=== PATIENT | female | born 1980 | race Caucasian/White ===

== ENCOUNTER 2021-02-14 11:04 | Outpatient (RCR) | payer OTHER, SELFPAY ==
[2021-02-14 13:32] VITALS: BP 134/90; PULSE 99; RESP 20; TEMP 36.7; O2SAT 98
[2021-02-14] MEDS: ACETAMINOPHEN 325 MG TABLET 650 MG PO (13:36)
[2021-02-14] MEDS: FAMOTIDINE 20 MG TABLET PO (13:36)
[2021-02-14] MEDS: diphenhydrAMINE HCl CAP 25 MG CAPSULE PO (13:36)
[2021-02-14 15:11] VITALS: BP 122/74
--- NOTE | 2021-02-15 09:49 | PC.NURSE ---
Called Ms Monaco, and she stated she has a headache today, more than yesterday and is feeling the same but, no worse. She has no questions for us at this time.
== END 2021-02-14 16:00 ==
LOC: AMCINF 11:04
PROVIDERS: PCP Family Medicine; Visit Provider Internal Medicine Hematology & Oncology
DX: U07.1 COVID-19 (principal)
CPT/HCPCS: A9270; M0245; Q0245

== ENCOUNTER 2021-02-26 12:40 | Outpatient (CLI) | payer OTHER, SELFPAY ==
--- NOTE | ~2021-02-26 | XR_ITS ---
XR chest 2V DATE: 02/26/2021 12:55 INDICATION: Acute lower respiratory infection TECHNIQUE: PA and lateral views COMPARISON: None FINDINGS: Normal heart size. No hilar or mediastinal enlargement. No pulmonary infiltrate or consol idation, pulmonary vascular congestion or pleural effusion or pneumothorax. IMPRESSION: No active cardiopulmonary disease Reviewed, dictated and finalized at location A. STATION OPERATOR
== END 2021-02-26 12:41 | disposition home or self-care (01) ==
LOC: ANHIMG 12:46
PROVIDERS: PCP Family Medicine; Visit Provider Family Medicine
DX: J22 Unspecified acute lower respiratory infection (principal)
CPT/HCPCS: 71046

== ENCOUNTER 2023-01-22 09:35 | Outpatient (CLI) | payer OTHER, SELFPAY ==
--- NOTE | ~2023-01-22 | US_ITS ---
EXAMINATION: US thyroid DATE: 01/22/2023 11:01 INDICATION: Nontoxic goiter, unspecified. TECHNIQUE: Multiple ultrasound images of the thyroid were obtained. COMPARISON: Ultrasound 04/06/2018 FINDINGS: The right thyroid lobe measures 5.8 x 1.6 x 2.1 cm. The left thyroid lobe measures 4.6 x 1.3 x 1.9 c m. In the right thyroid lobe, there is an 11 mm solid, hypoechoic, wider than tall nodule with ill-d efined margin without echogenic foci (TI-RADS TR4), increased from 8 mm on 04/06/18. In the left thyro id lobe, there is a 6 mm solid, hypoechoic, wider than tall nodule with ill-defined margin without ec hogenic foci (TR4). IMPRESSION: 1. Small thyroid nodules. Consider thyroid ultrasound in one year. Reviewed, dictated and finalized at location A. NEERING TECHNICIAN PARKING
== END 2023-01-22 09:36 | disposition home or self-care (01) ==
PROVIDERS: PCP Family Medicine; Visit Provider Internal Medicine Endocrinology, Diabetes & Metabolism
DX: E04.2 Nontoxic multinodular goiter (principal)
CPT/HCPCS: 76536

== ENCOUNTER → 2023-02-04 14:56 | Outpatient (CLI) | payer OTHER, SELFPAY ==
--- NOTE | ~2023-02-04 | MM_ITS ---
EXAMINATION: MM screening christiane BI w juan pablo HISTORY: Screening TECHNIQUE: Craniocaudal and mediolateral oblique 3-D tomosynthesis images were obtained and synthetic 2-D images were generated. CAD analysis was submitted and interpreted. COMPARISON: No prior mammogram is available for comparison at this institution. BREAST PARENCHYMAL COMPOSITION: There are scattered areas of fibroglandular density. FINDINGS: There is no evidence of suspicious mass, calcification, or architectural distortion to sugg est malignancy in either breast. There has been no suspicious interval change. IMPRESSION: 1. No mammographic evidence of malignancy. 2. Recommend routine screening mammography in one year. BI-RADS Category 1: Negative Reviewed, dictated and finalized at location A. INFORMATICS
== END ==
PROVIDERS: PCP Obstetrics & Gynecology Gynecology; Visit Provider Obstetrics & Gynecology Gynecology
DX: Z12.31 Encounter for screening mammogram for malignant neoplasm of breast (principal)
CPT/HCPCS: 77063; 77067

== ENCOUNTER 2024-01-26 08:59 | Outpatient (CLI) | payer OTHER, SELFPAY ==
--- NOTE | ~2024-01-26 | US_ITS ---
EXAMINATION: US thyroid DATE: 01/26/2024 09:55 INDICATION: Nontoxic goiter, unspecified. TECHNIQUE: Multiple ultrasound images of the thyroid were obtained. COMPARISON: Ultrasound 01/22/2023 FINDINGS: The right thyroid lobe measures 4.5 x 1.7 x 1.9 cm. The left thyroid lobe measures 4.3 x 1.4 x 1.7 c m. The thyroid demonstrates heterogeneous echogenicity. Vascularity is increased. In the right thyro id lobe, there is an 8 mm solid, hypoechoic, wider than tall nodule with smooth margin without echoge abby foci (TI-RADS TR4). In the right thyroid lobe, there is a 4 mm nodule. In the left thyroid lobe, there is a 7 mm solid, hypoechoic, wider than tall nodule with ill-defined margin without echogenic f oci (TR4). IMPRESSION: 1. Small thyroid nodules, likely not clinically significant. No follow-up is needed. 2. Heterogeneous, hypervascular thyroid, likely chronic lymphocytic (Kenan) thyroiditis. Reviewed, dictated and finalized at location A. L SERVICES SUPERVISOR IMPRESSION: 1. Small thyroid nodules, likely not clinically significant. No follow-up is ne eded. 2. Heterogeneous, hypervascular thyroid, likely chronic lymphocytic (Kenan) thyroiditis.
== END 2024-01-26 09:00 | disposition home or self-care (01) ==
PROVIDERS: PCP Family Medicine; Visit Provider Internal Medicine Endocrinology, Diabetes & Metabolism
DX: E04.2 Nontoxic multinodular goiter (principal)
CPT/HCPCS: 76536